=== PATIENT | female | born 1995 | race Hispanic/Latino ===

== ENCOUNTER 2017-10-22 23:37 | Outpatient (CLI) | payer MEDICAID ==
[2017-10-23 00:03] VITALS: BP 115/62
[2017-10-23] MEDS ORDERED: LACTATED RINGERS 500 ML IV ONE (00:24)
--- NOTE | 2017-10-23 01:57 | Ultrasound Report ---
FINAL REPORT EXAM: US OB LIMITED HISTORY: Vaginal leaking. TECHNIQUE: Directed limited transabdominal ultrasound examination of the pelvis was performed. No prior studies are available for comparison. FINDINGS: The patient reports her last menstrual period 02/07/2017, corresponding to current gestational age of 36 weeks, 6 days There is a single intrauterine gestation, with cephalic presentation. cardiac activity is identified, with a heart rate heart rate of 152 beats per minute. The amniotic fluid index measures 16.8 cm, within normal limits. IMPRESSION: 1. Single live intrauterine gestation, with cephalic presentation. 2. Normal amniotic fluid index.
== END 2017-10-23 01:35 | disposition home or self-care (01) ==
LOC: TRG 23:37
PROVIDERS: ATTEND Obstetrics & Gynecology
DX: O42.92 Full-term premature rupture of membranes, unspecified as to length of time between rupture and onset of labor (principal); O47.03 False labor before 37 completed weeks of gestation, third trimester; Z3A.36 36 weeks gestation of pregnancy
CPT/HCPCS: 59025; 76815; J7120

== ENCOUNTER 2017-11-04 12:14 | Outpatient (CLI) | payer MEDICAID ==
[2017-11-04 13:49] LABS: Bacteria,Urine 4+ /HPF (Negative); Bilirubin,Urine NEG (Negative); Blood,Urine NEG (Negative); Color,Urine Yellow (Yellow); Nitrite,Urine NEG (Negative); Protein,Urine <15 mg/dL mg/dL (Negative); Urobilinogen,Urine < 2.0 mg/dL (<2.0)
[2017-11-04 14:08] LABS: Hematocrit 36.2 % (30.3-42.9); Hemoglobin 12.2 gm/dl (10.1-14.3); Mean Corpuscular HGB Conc 34 % (30-34); Mean Corpuscular Hemoglobin 31 pg (28-32); Mean Corpuscular Volume 91 fl (79-97); Platelet Count 128 K/mm3 (140-440); Red Blood Count 3.96 M/mm3 (3.65-5.03); Red Cell Distribution Width 13.8 % (13.2-15.2)
[2017-11-04 14:21] LABS: Alanine Aminotransferase 30 units/L (7-56); Uric Acid 5.8 mg/dL (3.5-7.6)
[2017-11-04 14:34] VITALS: BP 111/64
== END 2017-11-04 15:08 | disposition home or self-care (01) ==
LOC: TRG 12:14 → LD 13:06 → TRG 15:08
PROVIDERS: ATTEND Obstetrics & Gynecology
DX: Z34.93 Encounter for supervision of normal pregnancy, unspecified, third trimester (principal); Z3A.38 38 weeks gestation of pregnancy
CPT/HCPCS: 36415; 59025; 81001; 82565; 83615; 84450; 84460; 84550; 85027

== ENCOUNTER 2017-11-15 10:15 | Outpatient (CLI) | payer MEDICAID ==
[2017-11-15 10:37] VITALS: BP 114/78
== END 2017-11-15 11:50 | disposition home or self-care (01) ==
LOC: TRG 10:15
PROVIDERS: ATTEND Obstetrics & Gynecology
DX: O48.0 Post-term pregnancy (principal); Z3A.40 40 weeks gestation of pregnancy
CPT/HCPCS: 59025

== ENCOUNTER 2017-11-19 11:20 | Outpatient (CLI) | payer MEDICAID ==
[2017-11-19 11:51] VITALS: BP 121/65
--- NOTE | 2017-11-19 13:39 | Ultrasound Report ---
History: Estimated weights. Findings: Gestation: Single Position: Cephalic Amniotic Fluid: PRIMO = 15.1 cm Placenta: Anterior Placental Grade: 1 Heart Rate: 120 BPM BPD: 9.9 cm = 40 w 3 d HC: 35.4 cm = 41 w 3 d AC: 40.1 cm = out of range FL: 7.7 cm = 39 w 4 d HC/AC Ratio: 0.8 Cephalic Index: 79.4 Estimated Weight: 4746 grams Clinical age = 40 w 5 d EDC: 11/14/17 US Gest. Age = 40 w 3 d EDC: 11/16/17
== END 2017-11-19 13:35 | disposition home or self-care (01) ==
LOC: TRG 11:20
PROVIDERS: ATTEND Obstetrics & Gynecology
DX: O48.0 Post-term pregnancy (principal); Z3A.40 40 weeks gestation of pregnancy
CPT/HCPCS: 59025; 76816